=== PATIENT | male | born 1965 | race Caucasian/White ===

== ENCOUNTER → 2023-09-13 | Outpatient (CLI) | payer BC ==
[~2023-09-13] MED LIST: AUGMENTIN 875 M1 TAB PO; DAYPRO600 M1 PO; MEDROL DOSEPAK4 MG PO; ROBAXIN750 MG PO; VICODIN 500 MG-1 TAB PO
== END | disposition home or self-care (01) ==
LOC: LAB 15:42
DX: Z12.5 Encounter for screening for malignant neoplasm of prostate (principal)